=== PATIENT | female | born 1985 | race Caucasian/White ===

== ENCOUNTER 2018-07-03 08:36 | Outpatient (CLI) | payer OTHER ==
--- NOTE | 2018-07-03 10:18 | ULT ---
LIMITED RIGHT BREAST ULTRASOUND: DATE: 07/03/2018. PROVIDED CLINICAL HISTORY: Right breast palpable abnormality. FINDINGS: Limited sonographic interrogation was performed of the right breast from the 7 o'clock location in th e region of palpable concern. A simple cyst is seen in this location measuring about 1.8 cm. IMPRESSION: BI-RADS category 2 - benign findings. POS: YURY
== END 2018-07-03 08:37 | disposition home or self-care (01) ==
LOC: BICMAMMO 08:36
PROVIDERS: ATTEND Obstetrics & Gynecology
DX: N63.13 Unspecified lump in the right breast, lower outer quadrant (principal)
CPT/HCPCS: 77066; G0279